=== PATIENT | male | born 1955 | race American Indian/Alaskan Native ===

== ENCOUNTER 2021-10-19 06:35 | Day surgery (SDC) | payer MEDICARE, OTHER ==
[2021-10-19] MEDS ORDERED: ASPIRIN EC 325 MG TAB PO SCH (07:00)
[2021-10-19 07:23] LABS: Basophils # (Auto) 0.1 K/mm3 (0.0-0.1); Basophils % (Auto) 1.1 % (0.0-1.8); Eosinophils # (Auto) 0.4 K/mm3 (0.0-0.4); Eosinophils % (Auto) 5.5 % (0.0-4.3); Hemoglobin 13.3 gm/dl (11.8-15.2); Lymphocytes # (Auto) 1.4 K/mm3 (1.2-5.4); Lymphocytes % (Auto) 21.7 % (13.4-35.0); Mean Corpuscular HGB Conc 32 % (32-34); Mean Corpuscular Volume 80 fl (84-94); Monocytes # (Auto) 0.9 K/mm3 (0.0-0.8); Monocytes % (Auto) 14.5 % (0.0-7.3); Platelet Count 230 K/mm3 (140-440); Red Blood Count 5.26 M/mm3 (3.65-5.03); Red Cell Distribution Width 16.5 % (13.2-15.2)
[2021-10-19 07:31] LABS: INR 0.89 (0.87-1.13)
[2021-10-19 07:32] LABS: Partial Thromboplastin Time 29.7 Sec. (24.2-36.6)
[2021-10-19 07:33] LABS: Calcium 9.3 mg/dL (8.4-10.2)
[2021-10-19] MEDS: SODIUM CHLORIDE 0.9% 500 ML 500 ML IV SCH ×3 (08:30→13:18)
--- NOTE | 2021-10-19 09:27 | Electrocardiograph Report ---
[facility] Test Date: 2021-10-19 Test Time: 07:40:59 Pat Name: SUZI MACHUCA Department: Room: Gender: M Steam Room Attendant: CLEOPATRA : 1955 Requested By: TRISTIAN SAWANT Order Number: [id number] Reading MD: Tristian Sawant Measurements Intervals [place] Rate: 84 P: 65 MO: 204 QRS: 66 QRSD: 100 T: 116 QT: 405 QTc: 477 Interpretive Statements Sinus rhythm Probable left atrial enlargement No previous ECG available for comparison Electronically Signed On 10-19-2021 9:26:33 EST by Tristian Sawant
[2021-10-19] MEDS ORDERED: NITROGLYCERIN SYRINGE 3 ML ONE (10:01)
[2021-10-19] MEDS ORDERED: HEPARIN/NS 5000 UNIT/500ML 1,000 ML IR ONE (10:01)
[2021-10-19] MEDS: HEPARIN 10,000 UNITS/10 ML VIAL ONE ×2 (10:22→10:47)
[2021-10-19] MEDS: LIDOCAINE (2%) 20 MG/1 ML VIAL 20 ML MDV INFILTRATI ONE ×2 (10:22→10:46)
[2021-10-19] MEDS: VERAPAMIL 5 MG/2 ML INJ ONE ×2 (10:22→10:47)
[2021-10-19] MEDS: MIDAZOLAM 2 MG/2 ML INJ ONE ×2 (10:23→10:43)
[2021-10-19] MEDS: fentaNYL 100 MCG/2 ML INJ ONE ×2 (10:23→10:43)
--- NOTE | 2021-10-19 11:14 | Short Stay Summary ---
Short Stay Documentation Date of service: 10/19/21 - History H&P: obtained from office - Allergies and Medications Current Medications: Allergies No Known Allergies Allergy (Verified 10/19/21 07:06) Home Medications Medication Instructions Recorded Confirmed Last Taken Type Aspirin EC [Halfprin EC] 81 mg PO QDAY 05/21/13 05/21/13 10/18/21 History Insulin Glargine,Hum.rec.anlog 8 unit SQ AMHY 05/21/13 05/21/13 10/19/21 History [Lantus Solostar] AtorvaSTATin [Lipitor] 20 mg PO QHS 10/19/21 10/19/21 10/18/21 History Furosemide [Lasix TAB] 40 mg PO QDAY 10/19/21 10/19/21 10/18/21 History Hydralazine HCl 50 mg PO DAILY 10/19/21 10/19/21 10/19/21 History Olmesartan Medoxomil [Benicar] 40 mg PO DAILY 10/19/21 10/19/21 10/19/21 History carvediloL [Coreg] 12.5 mg PO BID 10/19/21 10/19/21 10/19/21 History Active Medications Aspirin (Aspirin Ec 325 Mg Tab) 325 mg PO ONCE@0700 PRICE Stop: 10/19/21 18:00 Last Admin: 10/19/21 07:15 Dose: 325 mg Sodium Chloride (Nacl 0.9% 500 Ml) 500 mls @ 75 mls/hr IV DIRECT PRICE Stop: 10/19/21 14:39 Last Admin: 10/19/21 10:23 Dose: 75 mls/hr - Brief post op/procedure progress note Date of procedure: 10/19/21 Pre-op diagnosis: cardiomyopathy Post-op diagnosis: same Procedure: see report Anesthesia: local Estimated blood loss: minimal Pathology: none - Disposition Condition at discharge: Good Disposition: 01 HOME / SELF CARE / HOMELESS - Discharge Diagnoses (1) Hyperlipemia, mixed Status: Chronic (2) Cardiomyopathy Status: Chronic Qualifiers: Cardiomyopathy type: ischemic Qualified Code(s): I25.5 - Ischemic cardio myopathy (3) Chronic renal insufficiency, stage III (moderate) Status: Chronic Qualifiers: Chronic kidney disease stage 3 subtype: stage 3b (GFR 30-44) Qualified Code(s): N18.32 - Chronic kidney disease, stage 3b (4) Diabetes Status: Chronic Qualifiers: Diabetes mellitus type: type 1 Diabetes mellitus complication status: with other specified complication Qualified Code(s): E10.69 - Type 1 diabetes mellitus with other specified complication (5) HTN (hypertension) Status: Chronic Qualifiers: Hypertension type: primary hypertension Qualified Code(s): I10 - Essential (primary) hypertension Short Stay Discharge Plan Diet: low fat, low cholesterol, low salt, diabetic Wound: keep clean and dry Follow up with: PRIMARY CARE, [Primary Care Provider] - 7 Days
[2021-10-19] MEDS ORDERED: HYDROcodone/ACETAMINOPHEN 5-325 MG TAB PO PRN (12:00)
[2021-10-19] MEDS ORDERED: traMADol 50 MG TAB PO PRN (12:00)
[2021-10-19] MEDS ORDERED: SODIUM CHLORIDE 0.9% 1000 ML 1,000 ML IV SCH (12:00)
--- NOTE | 2021-10-19 12:08 | Cardiac Catherization Report ---
DATE OF SERVICE: 10/19/2021 LEFT HEART CATHETERIZATION CLINICAL INFORMATION: This is a 65-year-old man with [id number] LV dysfunction with chronic renal insufficiency, diabetes, obesity, here for left heart catheterization for ischemic evaluation. Procedure was done with moderate sedation, started at 10:23 and finished 10:58. There is 35 minutes of moderate sedation. DESCRIPTION OF PROCEDURE: Procedure was done via the right radial artery, sterile technique and local anesthesia. A 6-N[place]ien radial sheath inserted. Left system engaged with JL3.5 catheter. Left main is medium to large caliber, was patent, with mild luminal irregularities. LAD is a medium caliber vessel, proximal and mid diffuse 40%-50%, distally it is patent. Diagonal 1 and diagonal 2 are small caliber vessels, proximal, and has 80% diffuse disease, less than 2 mm vessels. Circumflex, proximal is patent, mild luminal irregularities, goes into a pulelm-vt-vbrft caliber OM1 that is diffusely diseased, 20%, upper and lower branches. You see faint collaterals feeding the left to right. However, distal RCA was small caliber. RCA engaged with JR4. Proximal 90% of a 2.5 vessel. Distal is 100% of 2.0 vessel, small caliber. LV gram done in [place]ONG[place] and FLORES shows mild LV dysfunction, EF 40%-45%. LVEDP is 17 mmHg, LV is 124, aortic is 120/59. No gradient across the aortic valve on pullback. The 5-Nigerien catheters taken over a guidewire. A 6-Nigerien radial sheath was discontinued. Radial band applied. No hematoma, no bleeding. SUMMARY: Left main patent. LAD proximal and mid, diffuse 40%-50%; distal patent. Diagonal 1 and diagonal 2, small caliber vessels with diffuse 80% lesion in both. Circumflex patent. OM1 diffuse, 10%-20%. Left to right collaterals feeding a very small PDA. RCA dominant, proximal 90%, small caliber. Distal is 100%, 2.0 vessel, with mild LV dysfunction. Continue medical management. Small vessel coronary arterial disease. TID: [id number] RECEIPT: [id number] VRM/THIAGO
[2021-10-19 14:13] VITALS: BP 159/77
== END 2021-10-19 15:10 | disposition home or self-care (01) ==
LOC: CATHLABREC 06:35
PROVIDERS: ATTEND Internal Medicine
DX: I42.0 Dilated cardiomyopathy (principal); E78.2 Mixed hyperlipidemia; I12.9 Hypertensive chronic kidney disease with stage 1 through stage 4 chronic kidney disease, or unspecified chronic kidney disease; E11.22 Type 2 diabetes mellitus with diabetic chronic kidney disease; N18.30 Chronic kidney disease, stage 3 unspecified; I25.118 Atherosclerotic heart disease of native coronary artery with other forms of angina pectoris; K21.9 Gastro-esophageal reflux disease without esophagitis; M19.90 Unspecified osteoarthritis, unspecified site; E66.9 Obesity, unspecified; Z79.899 Other long term (current) drug therapy; Z79.82 Long term (current) use of aspirin; Z79.4 Long term (current) use of insulin; Z68.29 Body mass index [BMI] 29.0-29.9, adult; Z98.49 Cataract extraction status, unspecified eye; G62.9 Polyneuropathy, unspecified; Z98.890 Other specified postprocedural states
CPT/HCPCS: 36415; 80048; 82962; 85025; 85610; 85730; 93005; 93458; 99156; 99157; C1894; J1644; J1815; J2250; J3010; J3490; J7040; Q9967